=== PATIENT | male | born 2000 | race African-American/Black ===

== ENCOUNTER 2018-07-20 09:55 | Emergency (ER) | payer SELFPAY ==
[~2018-07-20] VITALS: Ht 170.2 cm; Wt 72.6 kg
[2018-07-20 09:55] VITALS: BP 120/75
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
--- NOTE | 2018-07-20 10:06 | NUR ---
ED Nurse Note: patient c/o headache 7/10 and bilateral knee pain 6/10.
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
[2018-07-20] MEDS ORDERED: CYCLOBENZAPRINE10 MG ORAL (10:34)
[2018-07-20] MEDS ORDERED: IBUPROFEN800 MG ORAL (10:34)
--- NOTE | 2018-07-20 10:35 | NUR ---
ED Nurse Note: patient taken down to xray
--- NOTE | 2018-07-20 11:00 | NUR ---
ER DISCHARGE NOTE: Patient is cleared to be discharged per ERMD, pt is aox4, on room air, with stable vital signs. pt was given dc and prescription instructions, pt was able to verbalize understanding, pt id band removed without complications. pt is able to ambulate with steady gait. pt took all belongings.
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
[2018-07-20 11:39] VITALS: BP 120/75
== END 2018-07-20 11:00 | disposition home or self-care (01) ==
LOC: EDBD 09:55 → EMR 10:05
DX: S50.812A Abrasion of left forearm, initial encounter (principal); S80.211A Abrasion, right knee, initial encounter; S20.211A Contusion of right front wall of thorax, initial encounter; V43.62XA Car passenger injured in collision with other type car in traffic accident, initial encounter; Y92.410 Unspecified street and highway as the place of occurrence of the external cause
CPT/HCPCS: 99283